=== PATIENT | female | born 1990 | race Hispanic/Latino ===

== ENCOUNTER 2017-10-21 06:07 | Day surgery (SDC) | payer OTHER ==
[2017-10-20 08:55] VITALS: BMI 35.4
[2017-10-21] MEDS ORDERED: Fentanyl 100 MCG/2 ML VIAL ONE (06:53)
[2017-10-21] MEDS ORDERED: Lidocaine 2% 10 ML INJ ONE (06:55)
[2017-10-21] MEDS ORDERED: Bupivacaine HCl 0.25%/Epi 0.0005/PF 10 ML VIAL FS ONE ×2 (06:55→06:56)
[2017-10-21] MEDS ORDERED: Bacitracin Zinc Ointment 30 gm TUBE ONE (06:55)
[2017-10-21 07:11] LABS: Anion Gap 13 mmol/L (10-20); BUN (Urea Nitrogen) 10 mg/dL (7.0-18.7); Calc. Creatinine Clearance 156 mL/min (70-130); Calcium 9.9 mg/dL (7.8-10.44); Carbon Dioxide 22 mmol/L (22-29); Chloride 106 mmol/L (98-107); Estimated GFR-MDRD 89; Glucose 85 mg/dL (70-105); Potassium 4.2 mmol/L (3.5-5.1); Sodium 137 mmol/L (136-145)
[2017-10-21 07:12] LABS: BHCG - Serum Negative (NEGATIVE); Pregs Control Background? CLEAR/WHITE (CLR/WHITE); Pregs Control Bar Appear? YES (CONTROL BAR)
[2017-10-21 07:25] LABS: #Eosinphils 0.1 thou/uL (0.0-0.7); #Lymphocytes 2.1 thou/uL (1.20-3.40); #Monocytes 0.5 thou/uL (0.11-0.59); %Basophils 0.8 % (0.0-1.0); %Eosinophils 1.7 % (0.0-10.0); %Lymphocytes 36.7 % (21.0-51.0); %Monocytes 8.8 % (0.0-10.0); Hemoglobin 13.7 g/dL (12.0-16.0); Mean Corpuscular HGB CONC 32.7 g/dL (32.0-36.0); Mean Corpuscular Hemoglobin 28.1 pg (27.0-31.0); Mean Platelet Volume 7.6 fL (7.4-10.4); Platelet Count 274 thou/uL (130-400); RBC Distribution Width 12.4 % (11.5-14.5); Red Blood Cell (RBC) Count 4.88 mill/uL (4.20-5.40); White Blood Cell (WBC) Count 5.7 thou/uL (4.8-10.8)
[2017-10-21] MEDS ORDERED: Ketorolac Tromethamine 30 MG/ML VIAL ONE (07:55)
[2017-10-21] MEDS ORDERED: Midazolam HCl 2 mg/2 ml Vial ONE (08:04)
[2017-10-21] MEDS ORDERED: Promethazine HCl 25 MG/ML VIAL ONE (10:15)
[2017-10-21] MEDS ORDERED: Lidocaine 1% PF 5 ML VIAL ONE (13:50)
[2017-10-21] MEDS ORDERED: PROPOFOL 200 MG/20 ML VIAL ONE (13:50)
[2017-10-21] MEDS ORDERED: Ondansetron HCl/PF 4 MG/2 ML Vial ONE (13:50)
[2017-10-21] MEDS ORDERED: Dexamethasone 20 MG/5 ML VIAL ONE (13:50)
[2017-10-21] MEDS ORDERED: Glycopyrrolate 0.2 MG/ML 5 ML SYRINGE ONE (13:50)
--- NOTE | 2017-10-28 19:23 | PDOC.OP ---
Operative Note - Operative Note Operative Note: PROCEDURE: Excision of left lower back lipoma DATE OF PROCEDURE: 10/21/2017 SURGEON: Merly Solorio M.D. PREOPERATIVE DIAGNOSES: Left lower back lipoma POSTOPERATIVE DIAGNOSIS: Left lower back lipoma HISTORY: Patient with a subcutaneous mass of her left lower back which is symptomatic and present for several years. She requests that this be removed for symptomatic purposes. PROCEDURE IN DETAIL: After informed consent was obtained and appropriate preoperative antibiotics of MrAlan the patient was taken to the operating was placed in supine position and general anesthesia was administered she was then placed in the right lateral decubitus position with appropriate support and padding of her extremities and was prepped and draped in the standard sterile fashion. Local anesthesia was infused the skin subcutaneous tissues overlying the palpable mass and a transverse incision was made. Dissection was carried down to the mass which was deep to subcutaneous tissues just superficial to the fascia. This was a slightly lobulated encapsulated lipoma measuring 2 x 4 cm. This was dissected free of the surrounding tissues and sent for permanent pathology. The wound was irrigated and hemostasis obtained using Bovie electrocautery. The subcutaneous tissues were reapproximated in layers with 3-0 Monocryl suture and the skin was closed with 4-0 Monocryl suture. Dermabond dressings were placed and the patient was extubated and taken to recovery in good condition. Estimated blood loss was minimal. Complications. Specimen is lipoma from left lower back.
== END 2017-10-21 11:35 | disposition home or self-care (01) ==
LOC: SDC 06:07
PROVIDERS: ATTEND Surgery
PROC: 0JB70ZZ Excision of Back Subcutaneous Tissue and Fascia, Open Approach (ICD-10-PCS; principal; 2017-10-21)
DX: D17.1 Benign lipomatous neoplasm of skin and subcutaneous tissue of trunk (principal); F41.9 Anxiety disorder, unspecified; F32.9 Major depressive disorder, single episode, unspecified; Z79.899 Other long term (current) drug therapy; Z88.5 Allergy status to narcotic agent
CPT/HCPCS: 80048; 84703; 85025; 88304; 96374; J0131; J1100; J1885; J2001; J2250; J2405; J2550; J2704; J3010

== ENCOUNTER 2017-12-03 17:12 | Emergency (ER) | payer OTHER ==
[2017-12-03 17:55] LABS: Bilirubin Negative (Negative); Blood, Urine Negative (Negative); Clarity CLEAR (Clear); Glucose, Urine (Dipstick) >=1000 mg/dL (Negative); Leukocyte Negative (Negative); Nitrite Negative (Negative); Protein, Urine (Dipstick) Negative (Neg-Trace); Specific Gravity, Urine 1.026 (1.002-1.036); Urobilinogen 0.2 mg/dL (0.2-1.0)
[2017-12-03 18:06] LABS: #Eosinphils 0.1 thou/uL (0.0-0.7); #Lymphocytes 2.7 thou/uL (1.20-3.40); #Monocytes 0.5 thou/uL (0.11-0.59); #Neutrophils 3.7 thou/uL (1.40-6.50); %Basophils 0.4 % (0.0-1.0); %Eosinophils 0.8 % (0.0-10.0); %Lymphocytes 38.4 % (21.0-51.0); %Monocytes 7.4 % (0.0-10.0); Hemoglobin 13.4 g/dL (12.0-16.0); Mean Corpuscular HGB CONC 34.1 g/dL (32.0-36.0); Mean Platelet Volume 7.1 fL (7.4-10.4); Platelet Count 304 thou/uL (130-400); RBC Distribution Width 11.9 % (11.5-14.5); Red Blood Cell (RBC) Count 4.64 mill/uL (4.20-5.40); White Blood Cell (WBC) Count 6.9 thou/uL (4.8-10.8)
--- NOTE | 2017-12-03 19:02 | ULT ---
PELVIC ULTRASOUND: 12/03/17 HISTORY: Abdominal pain in patient with positive . FINDINGS: Multiple transabdominal and endovaginal sonographic images of the pelvis are obtained. FINDINGS: The uterus measures 8.5 cm x 4.4 cm x 5.1 cm. The endometrial stripe measures 1.4 cm which is mildly increased for patient's age. No fluid or fluid collection is seen in the endometrial canal. The ovaries demonstrate a normal sonographic appearance bilaterally. The right ovary measures 1.7 cm x 2.8 cm x 1.9 cm, and the left ovary measures 1.5 cm x 2.7 cm x 1.9 cm. Doppler evaluation of each o vary with spectral analysis and color flow evaluation demonstrates suggestion of arterial flow as wel l as venous flow in each ovary. Trace amount of free fluid is seen in the pelvis which is probably physiologic in origin. IMPRESSION: 1. Mild thickening of the endometrial stripe, but there is no fluid collection in the endometria l canal to suggest an intrauterine gestation. Ectopic cannot be excluded based on this exam ination. Correlation with quantitative beta HCG level is recommended. 2. Normal appearing bilateral ovaries. POS: [facility]
[2017-12-05 00:02] LABS: Chlamydia by PCR Not Detected (NotDetected); GC by PCR Not Detected (NotDetected)
== END 2017-12-03 20:05 | disposition home or self-care (01) ==
LOC: ERS 17:12
DX: O03.4 Incomplete spontaneous abortion without complication (principal); E28.2 Polycystic ovarian syndrome; G43.909 Migraine, unspecified, not intractable, without status migrainosus; Z79.899 Other long term (current) drug therapy; F31.9 Bipolar disorder, unspecified
CPT/HCPCS: 76856; 81003; 84702; 85025; 86900; 86901; 87480; 87491; 87510; 87591; 87660